=== PATIENT | female | born 1955 | race American Indian/Alaskan Native ===

== ENCOUNTER 2018-02-16 14:12 | Emergency (ER) | payer MEDICAID ==
[2018-02-16] MEDS ORDERED: NORCO 5/325 PO ONE (16:21)
--- NOTE | 2018-02-16 16:29 | XRay Report ---
FINAL REPORT PROCEDURE: XR ANKLE 3+V LT TECHNIQUE: Left ankle radiographs, AP, lateral, and oblique views. CPT 70733 HISTORY: left ankle injury COMPARISON: No prior studies are available for comparison. FINDINGS: There is an oblique mildly displaced fracture through the distal fibula with a large amount of adjacent soft tissue swelling. No other fractures are seen. The ankle mortise and talar dome appear intact. Large calcaneal spur seen at the Achilles tendon insertion site, small spur at the plantar fascia insertion site. Bone density appears normal. No other abnormalities are seen. IMPRESSION: Oblique mildly displaced distal fibular fracture with large amount of adjacent soft tissue swelling. Calcaneal spurs are also present..
--- NOTE | 2018-02-16 16:56 | Emergency Department Report ---
ED Extremity Problem HPI - General Chief complaint: Fall Stated complaint: FELL DOWN STAIRS. THINKS ANKLE IS FRACTURED Time Seen by Provider: 02/16/18 16:21 Source: patient Mode of arrival: Ambulatory Limitations: No Limitations - History of Present Illness Initial comments: Patient reports that she tripped over her shoe while walking on stairs. Reports twisting her left ankle on 2 steps. Denies other injury. Denies symptoms prior to tripping. Denies head trauma. MD Complaint: extremity pain, extremity swelling, joint swelling -: hour(s) Location: left, other (ankle) History of Same: No Radiation: none Severity scale (0 -10): 4 Quality: aching Consistency: constant Improves with: nothing Worsens with: weight bearing, walking Associated Symptoms: denies other symptoms - Related Data Previous Rx's Medication Instructions Recorded Last Taken Type HYDROcodone/APAP 5-325 [Mullens 1 each PO Q6HR PRN #8 tablet 02/16/18 Unknown Rx 5/325] Methocarbamol [Robaxin-750] 750 mg PO Q12HR PRN #10 tablet 02/16/18 Unknown Rx Allergies Allergy/AdvReac Type Severity Reaction Status Date / Time No Known Allergies Allergy Unverified 02/16/18 15:04 ED Review of Systems ROS: Stated complaint: FELL DOWN STAIRS. THINKS ANKLE IS FRACTURED Other details as noted in HPI Other: GENERAL: No weight change, fatigue, weakness, fever, chills, or night sweats SKIN: No changes in skin or hair, no itching, no rashes, no jaundice HEAD: No trauma, headache, or visual changes EYES: No blurriness, tearing, itching, acute visual loss, conjunctival discoloration, or scleral icterus EARS: No hearing loss, tinnitus, vertigo, or earache NOSE: No rhinorrhea, stuffiness, sneezing, itching, or epistaxis MOUTH: No bleeding gums, hoarseness, sore throat, or swelling CARDIAC: No new murmur, chest pain, palpitations, dyspnea on exertion, orthopnea , PND, or edema RESPIRATORY: No shortness of breath, wheeze, cough, sputum production, hemoptysis, pneumonia, asthma, bronchitis, or emphysema GI: No change in appetite, nausea, vomiting, dysphagia, change in bowel frequency, diarrhea, constipation, bleeding, hematemesis, melena, hematochezia, or abdominal pain URINARY: No frequency, urgency, polyuria, dysuria, hematuria, or incontinence MUSCULOSKELETAL: left ankle pain, swelling NEUROLOGIC: No loss of sensation, numbness, tingling, tremors, weakness, paralysis, seizures HEMATOLOGIC: No anemia, easy bruising, bleeding, petechiae, or purpura ENDOCRINE: No hot or cold intolerance, sweating, polyuria, polydipsia or, polyphagia no thyroid problems PSYCHIATRIC: No change in mood, no anxiety, no depression ED Past Medical Hx - Past Medical History Previous Medical History?: Yes Additional medical history: Abd pain and masses, Fibroids - Surgical History Past Surgical History?: Yes Hx Cholecystectomy: Yes Additional Surgical History: 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, hysterectomy - Social History Smoking Status: Never Smoker Substance Use Type: None - Medications Home Medications: Home Medications Medication Instructions Recorded Confirmed Last Taken Type HYDROcodone/APAP 5-325 [Mullens 1 each PO Q6HR PRN #8 tablet 02/16/18 Unknown Rx 5/325] Methocarbamol [Robaxin-750] 750 mg PO Q12HR PRN #10 tablet 02/16/18 Unknown Rx ED Physical Exam - General Limitations: No Limitations - Other Other exam information: GENERAL: Patient in no acute distress HEAD: Normocephalic, atraumatic EYES: PERRLA, EOM intact, no scleral icterus, visual potter and acuity wnl NOSE: No tenderness, discharge, sinus tenderness MOUTH: No erythema, bleeding, exudate HEART: Regular rate and rhythm, no murmur, S1-S2 are auscultated, pulses are symmetric LUNGS: bilateral breath sounds. No wheezing, rales, rhonchi ABDOMEN: Normal bowel sounds, no tenderness, no rebound, no guarding, no masses , no CVA tenderness MUSCULOSKELETAL: Decreased ROM left ankle due to pain, swelling lateral malleolus, neurovascularly intact NEUROLOGIC: GCS 15, Alert and Oriented x3, Cranial nerves intact, normal sensation, normal strength, normal gait, no cerebellar deficit PSYCHIATRIC: No homicidal or suicidal ideation, no anxiety, no depression, no hallucinations SKIN: Skin is warm and dry, no wounds, no rashes ED Course Vital Signs 02/16/18 02/16/18 15:04 15:59 Temperature 97.7 F Pulse Rate 83 86 Respiratory 20 14 Rate Blood Pressure 141/92 Blood Pressure 136/85 [Right] O2 Sat by Pulse 99 98 Oximetry ED Medical Decision Making - Radiology Data Radiology results: report reviewed - Medical Decision Making Patient comfortable. Updated with results. Plan discharge with outpatient follow up. Patient agrees with plan and will return if symptoms worsen. Critical care attestation.: If time is entered above; I have spent that time in minutes in the direct care of this critically ill patient, excluding procedure time. ED Disposition Clinical Impression: Closed left ankle fracture Qualifiers: Encounter type: initial encounter Qualified Code(s): S82.892A - Other fracture of left lower leg, initial encounter for closed fracture Disposition: TO HOME OR SELFCARE Is pt being admited?: No Condition: Stable Instructions: Ankle Fracture (ED) Prescriptions: HYDROcodone/APAP 5-325 [Mullens 5/325] 1 each PO Q6HR PRN #8 tablet PRN Reason: Pain Methocarbamol [Robaxin-750] 750 mg PO Q12HR PRN #10 tablet PRN Reason: Spasms Referrals: [facility] [Outside] - 2-3 Days RAAD ESCOBAR MD [Staff Physician] - 2-3 Days Time of Disposition: 16:55
[2018-02-16] MEDS ORDERED: ROBAXIN PO ONE (17:22)
--- NOTE | 2018-02-16 17:47 | Emergency Department Report ---
Blank Doc - Documentation Documentation: Left Ankle Posterior Splint Splint applied by RN. Checked by physician. Neurovascularly intact pre and post procedure. No complications. Fiberglass and nicolás wrap splint. Patient will follow up with ortho.
[2018-02-16 18:39] VITALS: BP 146/92
== END 2018-02-16 18:10 | disposition home or self-care (01) ==
LOC: ED 14:12
DX: S82.432A Displaced oblique fracture of shaft of left fibula, initial encounter for closed fracture (principal); Z90.710 Acquired absence of both cervix and uterus; W01.0XXA Fall on same level from slipping, tripping and stumbling without subsequent striking against object, initial encounter; Y93.89 Activity, other specified; Y92.89 Other specified places as the place of occurrence of the external cause; Y99.8 Other external cause status

== ENCOUNTER 2018-09-14 14:57 | Outpatient (CLI) | payer MEDICAID ==
--- NOTE | 2018-09-14 20:29 | XRay Report ---
FINAL REPORT PROCEDURE: XRAY ANKLE COMPLETE LEFT TECHNIQUE: LEFT ankle radiographs, AP, lateral, and oblique views. CPT 54793 HISTORY: LEFT ANKLE PAIN COMPARISON: No prior studies are available for comparison. FINDINGS: There is mild deformity of the distal fibula, there appears to be an old healed fracture. Soft tissue swelling is seen anterior lateral aspect of the ankle. There appears to be a subchondral cyst in the talus medially. This measures 5.3 x 3.0 millimeters. Large calcaneal spur seen at the Achilles tendo n insertion site, small spur at the plantar fascia insertion site. IMPRESSION: Soft tissue swelling. Deformity distal fibula consistent with an old healed fracture. Calcaneal spurs are present. No acute fracture or dislocation is visualized..
== END 2018-09-14 14:58 | disposition home or self-care (01) ==
LOC: XRAY 14:57
PROVIDERS: ATTEND Orthopaedic Surgery
DX: M25.572 Pain in left ankle and joints of left foot (principal); M79.9 Soft tissue disorder, unspecified; Z90.710 Acquired absence of both cervix and uterus; Z90.49 Acquired absence of other specified parts of digestive tract